=== PATIENT | female | born 1960 | race Caucasian/White ===

== ENCOUNTER → 2020-12-31 | Outpatient (CLI) | payer BC | LOC: US 14:29 | DX: R09.89 Other specified symptoms and signs involving the circulatory and respiratory systems (principal); M79.606 Pain in leg, unspecified | CPT/HCPCS: 93922; 93925 ==

== ENCOUNTER → 2021-03-11 | Outpatient (CLI) | payer BC | LOC: MAMO 08:20 | DX: Z12.31 Encounter for screening mammogram for malignant neoplasm of breast (principal); R92.0 Mammographic microcalcification found on diagnostic imaging of breast | CPT/HCPCS: 77063; 77067 ==

== ENCOUNTER → 2021-03-29 | Outpatient (CLI) | payer BC | LOC: MAMO 10:13 | DX: R92.8 Other abnormal and inconclusive findings on diagnostic imaging of breast (principal) | CPT/HCPCS: 77065; G0279 ==

== ENCOUNTER → 2021-05-03 | Outpatient (CLI) | payer BC | LOC: EXRD 12:00 | DX: Z78.0 Asymptomatic menopausal state (principal); C50.211 Malignant neoplasm of upper-inner quadrant of right female breast; M85.89 Other specified disorders of bone density and structure, multiple sites | CPT/HCPCS: 77080 ==